=== PATIENT | male | born 1985 | race Caucasian/White ===

== ENCOUNTER 2016-12-16 07:29 | Emergency (ER) | payer SELFPAY ==
[2016-12-16 07:46] VITALS: BP 139/103
--- NOTE | 2016-12-16 07:56 | UC ---
Abdominal Pain Male HPI - HPI Summary HPI Summary: 31 yo M with bruising LLQ, appeared suddenly this am. States he has been working hard, moving and doing heavy lifting. Also lifted a baby calf this am, but does not recall any direct trauma to the area. - History of Current Complaint Chief Complaint: UCAbdominalPain Stated Complaint: LEFT SIDE PAIN Time Seen by Provider: 12/16/16 07:55 Hx Obtained From: Patient, Family/Airport Manager - girlfriend Lauren with pt. Onset/Duration: Sudden Onset, Lasting Hours, Still Present Timing: Constant Severity Initially: Moderate Severity Currently: Moderate Pain Intensity: 2 Pain Scale Used: 0-10 Numeric Location: Discrete At: LLQ Radiates: Yes Radiates to: Flank - left Character: Aching Aggravating Factor(s):: Deep Breaths - cough Alleviating Factor(s): Nothing Associated Signs And Symptoms: Positive: Dizzy Similar Episode/Dx As:: right rib fx - Allergies/Home Medications Allergies/Adverse Reactions: Allergies Allergy/AdvReac Type Severity Reaction Status Date / Time allergies Allergy Congestion Uncoded 12/16/16 07:46 Home Medications: Home Medications Esomeprazole Magnesium [Nexium 24Hr] 40 mg PO DAILY 12/16/16 [History Confirmed 12/16/16] PARoxetine HCL TAB* [Paxil TAB*] 10 mg PO DAILY 12/16/16 [History Confirmed ] PMH/Surg Hx/FS Hx/Imm Hx Previously Healthy: Yes Other History Of: Negative For: HIV, Hepatitis B, Hepatitis C, Anticoagulant Therapy - Surgical History Surgical History: Yes Surgery Procedure, Year, and Place: appendectomy, cholecystectomy - Family History Known Family History: Positive: Cardiac Disease - Social History Occupation: Employed Full-time Alcohol Use: Weekly Alcohol Amount: 20 beers/week ave. Substance Use Type: None Smoking Status (MU): Never Smoked Tobacco Type: Smokeless Tobacco Amount Used/How Often: 1/2 can a day. Length of Time of Smoking/Using Tobacco: 5 YRS Review of Systems Constitutional: Negative Skin: Bruising - LLQ Eyes: Negative ENT: Negative Respiratory: Negative Cardiovascular: Negative Gastrointestinal: Abdominal Pain Genitourinary: Negative Motor: Negative Neurovascular: Negative Musculoskeletal: Negative Neurological: Negative Psychological: Negative All Other Systems Reviewed And Are Negative: Yes Physical Exam Triage Information Reviewed: Yes Appearance: Well-Nourished, Ill-Appearing, Pain Distress Vital Signs: Initial Vital Signs Temp 98.6 F 12/16/16 07:35 Pulse 96 12/16/16 07:35 Resp 24 12/16/16 07:35 BP 139/103 12/16/16 07:35 Pulse Ox 98 12/16/16 07:35 elevated BP noted, rapid pulse noted Vital Signs Reviewed: Yes Eyes: Positive: Conjunctiva Clear ENT: Positive: Normal ENT inspection Neck: Positive: Supple Respiratory: Positive: Lungs clear, Normal breath sounds, No respiratory distress Cardiovascular: Positive: RRR, No Murmur, Pulses Normal, Brisk Capillary Refill Abdomen Description: Positive: Nontender, Soft Bowel Sounds: Positive: Present Musculoskeletal: Positive: Strength Intact, ROM Intact Neurological: Positive: Alert, Muscle Tone Normal Psychological Exam: Normal Skin: Positive: Other - 17cm purple ecchymosis LLQ Abd Pain Male Course/Dx - Course Course Of Treatment: Pt's abdomen is not a surgical abdomen, and his urine shows no blood. 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 Suspect he has a high pain tolerance. Also admits ETOH, which could mask memory of the pain of trauma, and could make pt more likely to have bleeding. Will send pt to [facility] for further evaluation, for advanced imaging and labs. Explained to pt that he may need a trauma surgeon if the spleen has bled and walled off. Pt and girlfriend voice understanding. Pt signs AMA to go by private car to [facility]. - Differential Dx/Clinical Impression Differential Diagnosis/HQI/PQRI: Other - splenic injury, rib fracture, muscle wall bleed, kidney injury Provider Diagnoses: LLQ abd pain and significant, large LLQ ecchymosis - Physician Notification/Consults Discussed Patient Care With: Stefano Gonzáles Time Discussed With Above Provider: 09:00 Instructed by Provider To: MD Will See In ED Discharge - Discharge Plan Condition: Stable Disposition: AGAINST MEDICAL ADVICE Discharge Disposition Comment: pt will go by private car to [facility] ED, with girlfriend Lauren valenzuela Referrals: JOHN Phelps [Primary Care Provider] -
== END 2016-12-16 09:04 | disposition left against medical advice (07) ==
LOC: UCCORT 07:29
DX: R10.32 Left lower quadrant pain (principal); S30.1XXA Contusion of abdominal wall, initial encounter; X58.XXXA Exposure to other specified factors, initial encounter; Y93.9 Activity, unspecified; Y92.9 Unspecified place or not applicable; Z90.49 Acquired absence of other specified parts of digestive tract; F17.220 Nicotine dependence, chewing tobacco, uncomplicated
CPT/HCPCS: 81003; 99212; G0463